=== PATIENT | male | born 1965 | race Caucasian/White ===

== ENCOUNTER 2020-02-14 06:54 | Outpatient (NON) | payer OTHER, SELFPAY ==
[2020-02-15 01:18] LABS: SARS-CoV-2 RNA PCR Positive
== END 2020-02-14 06:55 ==
PROVIDERS: PCP Family Medicine Adolescent Medicine; Visit Provider Family Medicine Adolescent Medicine
DX: U07.1 COVID-19 (principal)
CPT/HCPCS: 87635; C9803; U0003

== ENCOUNTER 2020-02-18 08:56 | Emergency (ER) | payer OTHER, SELFPAY ==
[2020-02-18 08:50] VITALS: BP 115/80; PULSE 118; RESP 22; TEMP 36.4; O2SAT 98
[2020-02-18] MEDS: SODIUM CHLORIDE 0.9% IV 1,000 ML 999 ML IV CONT (09:12)
[2020-02-18 09:23] VITALS: BP 137/99; PULSE 106; RESP 16; O2SAT 98
[2020-02-18 09:30] LABS: Basophils Percent Auto 0.1 % (0.2-1.2); Hematocrit 39.6 % (42.0-52.0); Hemoglobin 11.4 g/dL (14.0-18.0); Immature Granulocyte Absolute 0.08 K/mm3 (0.00-0.031); Immature Granulocyte Percent A 0.8 % (0-0.5); Lymphocytes Percent Auto 18.8 % (18.3-44.2); Mean Corpuscular HGB Conc 28.8 g/dl (32-36); Mean Corpuscular Hemoglobin 19.4 pg (26-34); Mean Corpuscular Volume 67.2 fl (80-100); Mean Platelet Volume 9.2 fl (7.4-10.4); Monocytes Absolute Auto 1.2 K/mm3 (0.1-0.6); Monocytes Percent Auto 11.9 % (2.6-8.5); Neutrophils Absolute Auto 6.9 K/mm3 (1.3-6.7); Neutrophils Percent Auto 68.4 % (45.5-73.1); Nucleated Red Blood Cells Absolute Auto 0.1 K/mm3 (0.0-0.012); Nucleated Red Blood Cells Perc 1.3 % (0.0-0.2); Platelet Count Result 428 k/mm3 (150-375); Red Blood Count 5.89 M/mm3 (4.6-6.20); Red Cell Distribution Width 19.2 % (11.5-14.5); White Blood Count 10.1 K/mm3 (4.5-10.0)
[2020-02-18 09:39] LABS: Add Urine Microscopic? YES; Appearance Urine Clear (Clear); Bacteria Urine Trace /hpf; Bilirubin Urine Negative (Negative); Blood Urine Negative (Negative); Color Urine Yellow (Yellow); Glucose Urine UA Negative (Negative); Ketones Urine Negative (Negative); Leukocyte Esterase Ur Negative LEU/UL (Negative); Mucus Urine Few /lpf; Nitrate Urine Negative (Negative); Protein Urine 2+ mg/dL (Negative); RBC Urine 0-2 /hpf (0-2); Squamous Epithelial Cell Urine Rare /hpf (Few)
--- NOTE | 2020-02-18 09:40 | ED.NAVMDI ---
HPI - Nausea/Vomiting/Diarrhea General Chief complaint: Nausea/Vomiting/Diarrhea Stated complaint: N/V - COVID + History of Present Illness HPI Narrative: Patient is a 54-year-old male who presents ER with nausea and vomiting weakness. Patient tested positive for COVID-19 on 02/14/2020. Reports his mother has it as well. Reports he has been feeling fairly fatigued over the last few days since being diagnosed. Reports he is drinking 1/5 of alcohol a day because he is an alcoholic. Today he woke up and had 2 more drinks but has been having nausea and vomiting daily as well which is of concern formed. No loss of consciousness. No difficulty breathing. Related Data Allergies Allergy/AdvReac Type Severity Reaction Status Date / Time No Known Allergies Allergy Unverified 02/18/20 08:55 Review of Systems Review of Systems: All systems reviewed & are unremarkable except as noted in HPI and below Constitutional: Constitutional: Reports chills, Reports fever(s) and Reports weakness ENT: Denies nasal congestion and Denies sore throat Cardiovascular: Cardiovascular: Denies chest pain and Denies radiating jaw, neck or arm pain Respiratory: Respiratory: Denies cough, Denies dyspnea and Denies wheezing Gastrointestinal: Gastrointestinal: Denies abdominal pain, Reports nausea and Reports vomiting PMFSH Past Medical History Medical History (Updated 02/18/20 @ 12:46 by Jamal Villatoro MD) Depression Hypertension Surgical History Surgical History (Updated 02/18/20 @ 12:40 by Jamal Villatoro MD) No history of previous surgery Social History Social History (Updated 02/18/20 @ 12:40 by Jamal Villatoro MD) Social History: Alcoholism Exam Narrative: Exam Narrative: GENERAL: Unkept-appearing, well-nourished, and in no acute distress. HEAD: Normocephalic, atraumatic. CHEST: Clear to auscultation. No respiratory distress. HEART: Tachycardic and regular. Normal peripheral pulses. ABDOMEN: Soft, nontender, nondistended. EXTREMITIES: Normal range of motion. No edema. SKIN: Warm, dry, no rash. NEURO: Alert and oriented x3. PSYCH: Normal mood and affect. Course Course Emergency Course: Tolerating oral fluids. Discharge home. Discussed that drinking 1/5 of alcohol per day is counterproductive in getting better from COVID-19. Vital Signs Vital signs: Vital Signs Temperature 97.6 F 02/18/20 08:50 Pulse Rate 118 H 02/18/20 08:50 Respiratory Rate 22 H 02/18/20 08:50 Blood Pressure 115/80 02/18/20 08:50 Pulse Oximetry 98 02/18/20 08:50 Temperature 97.6 F 02/18/20 08:50 Pulse Rate 86 02/18/20 11:20 Respiratory Rate 16 02/18/20 11:20 Blood Pressure 99/42 L 02/18/20 11:20 Pulse Oximetry 99 02/18/20 11:20 MDM - Nausea/Vomiting/Diarrhea Lab Data Result diagrams: 02/18/20 09:16 02/18/20 09:16 Labs: Lab Results 02/18/20 02/18/20 02/18/20 Range/Units 09:16 09:16 09:18 WBC 10.1 H (4.5-10.0) K/mm3 RBC 5.89 (4.6-6.20) M/mm3 Hgb 11.4 L (14.0-18.0) g/dL Hct 39.6 L (42.0-52.0) % MCV 67.2 L (80-100) fl MCH 19.4 L (26-34) pg MCHC 28.8 L (32-36) g/dl RDW 19.2 H (11.5-14.5) % Plt Count 428 H (150-375) k/mm3 MPV 9.2 (7.4-10.4) fl Immature Gran % (Auto) 0.8 H (0-0.5) % Neut % (Auto) 68.4 (45.5-73.1) % Lymph % (Auto) 18.8 (18.3-44.2) % [place] % (Auto) 11.9 H (2.6-8.5) % Eos % (Auto) 0.0 (0-4.4) % Baso % (Auto) 0.1 L (0.2-1.2) % Lymph # (Auto) 1.90 (0.9-3.2) K/mm3 [place] # (Auto) 1.2 H (0.1-0.6) K/mm3 Eos # (Auto) 0.0 (0-0.3) K/mm3 Baso # (Auto) 0.0 (0.0-0.1) K/mm3 Abs Immat Gran (auto) 0.08 H (0.00-0.031) K/mm3 Absolute Neuts (auto) 6.9 H (1.3-6.7) K/mm3 Absolute Nucleated RBC 0.1 H (0.0-0.012) K/mm3 Nucleated RBC % 1.3 H (0.0-0.2) % Platelet Estimate Increased (Adequate) Hypochromasia 2+ (NORMAL) Anisocytosis 1+ (NO
[2020-02-18 09:45] LABS: Platelet Estimate Increased (Adequate)
[2020-02-18 09:46] LABS: Anisocytosis 1+ (NORMAL); Hypochromasia 2+ (NORMAL); Microcytosis 1+ (NORMAL)
[2020-02-18 09:47] LABS: Potassium 3.1 mmol/L (3.4-5.0)
[2020-02-18 09:49] LABS: Alanine Aminotransferase 46 U/L (4-50); Albumin Level 3.7 g/dL (3.5-5.1); Alkaline Phosphatase 159 U/L (38-126); Anion Gap 14 mmol/L (8-16); Aspartate Amino Transferase 196 U/L (17-59); Bilirubin,Total 0.8 mg/dL (0.2-1.3); Blood Urea Nitrogen 6 mg/dL (9-20); Calcium 8.3 mg/dL (8.4-10.2); Carbon Dioxide 25 mmol/L (22-30); Chloride 102 mmol/L (98-107); Estimated CRCL calculation 90 ml/min; Estimated Glomerular Filt Rate > 60; Glucose 166 mg/dL (75-110); Lipase 76 U/L (23-300); Sodium 141 mmol/L (137-145)
[2020-02-18 09:55] LABS: Ethanol 149 mg/dL (<10)
[2020-02-18 10:10] VITALS: O2SAT 99
[2020-02-18 11:20] VITALS: BP 99/42; PULSE 86; RESP 16; O2SAT 99
[2020-02-18 13:07] VITALS: BP 152/112; PULSE 114; RESP 18; O2SAT 100
== END 2020-02-18 13:08 | disposition home or self-care (01) ==
PROVIDERS: Emergency Provider Emergency Medicine; PCP Family Medicine Adolescent Medicine
DX: R11.2 Nausea with vomiting, unspecified (principal); F32.9 Major depressive disorder, single episode, unspecified; I10 Essential (primary) hypertension; Z86.19 Personal history of other infectious and parasitic diseases
CPT/HCPCS: 36415; 80053; 80307; 81001; 83690; 85025; 96360; 99283; J7030